=== PATIENT | female | born 1990 | race Caucasian/White ===

== ENCOUNTER 2024-06-23 15:26 | Emergency (ER) | payer OTHER ==
[~2024-06-23] VITALS: Ht 157.5 cm; Wt 54.0 kg
[2024-06-23 15:30] VITALS: TEMP 98.6
[2024-06-23 17:33] LABS: APPEARANCE,URINE CLEAR (CLEAR); BILIRUBIN,URINE NEGATIVE (NEGATIVE); COLOR,URINE COLORLESS (YELLOW); GLUCOSE, URINE (UA) NEGATIVE (NEGATIVE); HCG,QUAL URINE NEGATIVE (NEGATIVE); KETONES,URINE TRACE mg/dL (NEGATIVE); LEUKOCYTE ESTERASE ,URINE NEGATIVE (NEGATIVE); NITRATE,URINE NEGATIVE (NEGATIVE); OCCULT BLOOD,URINE NEGATIVE (NEGATIVE); PROTEIN,URINE NEGATIVE (NEGATIVE); SPECIFIC GRAVITIY, URINE 1.006 (1.003-1.030); UROBILINOGEN,URINE <=1.0 mg/dL (<=1.0)
[2024-06-23 17:42] LABS: COVID AG,FIA SOURCE NASAL SWAB
[2024-06-23] MEDS: KETOROLAC TROMETHAMINE 30 MG/ML VIAL IM ONE (17:54)
[2024-06-23 18:06] LABS: SARS-COV2 (COVID) ANTIGEN,FIA Negative (Negative)
[2024-06-23 18:08] LABS: INFLUENZA TYPE A NEGATIVE FOR TYPE A (NEGATIVE); INFLUENZA TYPE B NEGATIVE FOR TYPE B (NEGATIVE)
[2024-06-23 19:40] VITALS: BP 133/75; PULSE 71; RESP 20; O2SAT 100
== END 2024-06-23 20:18 | disposition home or self-care (01) ==
LOC: EMS 15:26
DX: G43.909 Migraine, unspecified, not intractable, without status migrainosus (principal); Z90.710 Acquired absence of both cervix and uterus; Z20.822 Contact with and (suspected) exposure to COVID-19
CPT/HCPCS: 99283; 87426; 81003; 84703; 87804; 96372; J1885

== ENCOUNTER 2025-02-13 17:00 | Emergency (ER) | payer OTHER ==
[~2025-02-13] VITALS: Ht 157.5 cm; Wt 70.5 kg
[2025-02-13 17:04] VITALS: TEMP 97.4
[2025-02-13] MEDS: IBUPROFEN 400 MG TABLET PO ONE (17:52)
[2025-02-13] MEDS: HYDROCODONE/ACETAMINOPHEN 5-325 MG TABLET PO ONE (17:52)
[2025-02-13 18:30] VITALS: BP 118/70; PULSE 72; RESP 16; O2SAT 99
[2025-02-13] MEDS: BACITRACIN 28 GM OINTMENT TP ONE (18:46)
[2025-02-13] MEDS: PERTUSS(ACELL),DIPH,TET/PF 0.5 ML SYRINGE [ADULT] IM. ONE (18:56)
== END 2025-02-13 19:06 | disposition home or self-care (01) ==
LOC: EMS 17:00
DX: T23.242A Burn of second degree of multiple left fingers (nail), including thumb, initial encounter (principal); T31.0 Burns involving less than 10% of body surface; Z90.710 Acquired absence of both cervix and uterus; X17.XXXA Contact with hot engines, machinery and tools, initial encounter; Y93.G3 Activity, cooking and baking; Y92.89 Other specified places as the place of occurrence of the external cause; Y99.8 Other external cause status
CPT/HCPCS: 16020; 90471; 90715; 99283

== ENCOUNTER 2025-04-04 17:20 | Emergency (ER) | payer OTHER ==
[~2025-04-04] VITALS: Ht 154.9 cm; Wt 66.9 kg
[2025-04-04 17:23] VITALS: TEMP 97.9
[2025-04-04] MEDS: SODIUM CHLORIDE 0.9% 1,000 ML IV ONE (18:17)
[2025-04-04] MEDS: KETOROLAC TROMETHAMINE 30 MG/ML VIAL IVP ONE (18:18)
[2025-04-04] MEDS: METOCLOPRAMIDE HCL 5 MG/ML 2 ML VIAL IVP ONE (18:18)
[2025-04-04] MEDS: LORazepam 2 MG/ML VIAL IVP ONE (18:18)
[2025-04-04 18:41] LABS: PLATELET COUNT (AUTO) 239 K/uL (150-450); RED BLOOD CELL COUNT(AUTO) 4.03 MIL/uL (4.00-5.20); RED CELL DISTRIBUTION WIDTH 13.1 % (11.5-14.5); WHITE BLOOD COUNT (AUTO) 9.2 K/uL (4.5-11.0)
[2025-04-04 18:48] LABS: CALCIUM, TOTAL 8.1 mg/dL (8.8-10.5); CREATININE 0.54 mg/dL (0.60-1.30); GLOMERULAR FILTR. RATE CALC > 60 mL/min (>60); GLUCOSE,RANDOM 90 mg/dL (70-110); SODIUM SERUM 139 mmol/L (136-145); UREA NITROGEN, BLOOD 9 mg/dL (7-18)
[2025-04-04] MEDS ORDERED: METO5TAB95 PO (21:21)
[2025-04-04 22:01] VITALS: BP 110/85; PULSE 72; RESP 18; O2SAT 99
== END 2025-04-04 22:03 | disposition home or self-care (01) ==
LOC: EMS 17:20
DX: G43.909 Migraine, unspecified, not intractable, without status migrainosus (principal); F41.9 Anxiety disorder, unspecified; Z90.710 Acquired absence of both cervix and uterus
CPT/HCPCS: 99284; 96374; 96375; 96361; 80048; 84703; 85025; 36415; J1885; J2060; J2765; J7030

== ENCOUNTER 2025-06-06 17:09 | Emergency (ER) | payer OTHER ==
[~2025-06-06] VITALS: Ht 157.5 cm; Wt 65.9 kg
[~2025-06-06 17:09] MED LIST: METO5TAB95 PO
[2025-06-06 17:16] VITALS: TEMP 98.6
[2025-06-06 17:35] LABS: PLATELET COUNT (AUTO) 268 K/uL (150-450); RED BLOOD CELL COUNT(AUTO) 4.51 MIL/uL (4.00-5.20); RED CELL DISTRIBUTION WIDTH 12.7 % (11.5-14.5); WHITE BLOOD COUNT (AUTO) 8.2 K/uL (4.5-11.0)
[2025-06-06 17:39] LABS: CALCIUM, TOTAL 8.5 mg/dL (8.8-10.5); CREATININE 0.60 mg/dL (0.60-1.30); GLOMERULAR FILTR. RATE CALC > 60 mL/min (>60); GLUCOSE,RANDOM 104 mg/dL (70-110); SODIUM SERUM 140 mmol/L (136-145); UREA NITROGEN, BLOOD 13 mg/dL (7-18)
[2025-06-06 17:45] LABS: ASPARTATE AMINOTRANSFERASE 11.0 U/L (15-37); TOTAL PROTEIN, SERUM 7.2 g/dL (6.4-8.2)
[2025-06-06 17:49] LABS: TROPONIN I-HIGH SENSITIVITY 8 ng/L (<51)
[2025-06-06] MEDS: ACETAMINOPHEN 500 MG TABLET PO ONE (18:26)
[2025-06-06 18:49] VITALS: BP 113/56; PULSE 68; RESP 18; O2SAT 99
== END 2025-06-06 19:11 | disposition home or self-care (01) ==
LOC: EMS 17:11
DX: R07.89 Other chest pain (principal); R20.2 Paresthesia of skin; F41.9 Anxiety disorder, unspecified; Z90.710 Acquired absence of both cervix and uterus; Z79.899 Other long term (current) drug therapy
CPT/HCPCS: 71045; 80048; 80076; 84484; 84703; 85025; 93005; 99285; 36415-L1; 36415-TC

== ENCOUNTER 2025-06-22 11:29 | Emergency (ER) | payer OTHER ==
[~2025-06-22] VITALS: Ht 162.6 cm; Wt 63.6 kg
[2025-06-22 11:32] VITALS: BP 114/77; PULSE 77; RESP 18; TEMP 98.6; O2SAT 99
[2025-06-22] MEDS ORDERED: ACET-3385 PO (11:33)
[2025-06-22] MEDS: KETOROLAC TROMETHAMINE 30 MG/ML VIAL IM ONE (12:32)
[2025-06-22] MEDS: ONDANSETRON 4 MG TABLET PO ONE (13:18)
[2025-06-23] MEDS ORDERED: KETO10TA2 PO (00:22)
[2025-06-23] MEDS ORDERED: ONDA-104 PO (00:22)
[2025-06-23] MEDS ORDERED: DEXA4 PO (00:22)
== END 2025-06-22 14:52 | disposition home or self-care (01) ==
LOC: EMS 11:29
DX: G43.909 Migraine, unspecified, not intractable, without status migrainosus (principal); Z90.710 Acquired absence of both cervix and uterus; Z79.899 Other long term (current) drug therapy
CPT/HCPCS: 99284; 96372; J1885; Q0162

== ENCOUNTER 2025-06-22 21:35 | Emergency (ER) | payer OTHER ==
[~2025-06-22] VITALS: Ht 160 cm; Wt 63.6 kg
[~2025-06-22 21:35] MED LIST changes: +ACET-3385 PO
[2025-06-22] MEDS: MORPHINE SULFATE 4 MG/ML SYRINGE IVP ONE (22:15)
[2025-06-22] MEDS: ONDANSETRON HCL 4 MG/2 ML VIAL IVP ONE (22:15)
[2025-06-22] MEDS: SODIUM CHLORIDE 0.9% 1,000 ML IV ONE (22:15)
[2025-06-22 22:44] LABS: PLATELET COUNT (AUTO) 234 K/uL (150-450); RED BLOOD CELL COUNT(AUTO) 4.35 MIL/uL (4.00-5.20); RED CELL DISTRIBUTION WIDTH 12.7 % (11.5-14.5); WHITE BLOOD COUNT (AUTO) 9.1 K/uL (4.5-11.0)
[2025-06-22 22:51] LABS: CALCIUM, TOTAL 9.0 mg/dL (8.8-10.5); CREATININE 0.66 mg/dL (0.60-1.30); GLOMERULAR FILTR. RATE CALC > 60 mL/min (>60); GLUCOSE,RANDOM 98 mg/dL (70-110); SODIUM SERUM 138 mmol/L (136-145); UREA NITROGEN, BLOOD 16 mg/dL (7-18)
[2025-06-23] MEDS ORDERED: ONDA-104 PO (00:22)
[2025-06-23] MEDS ORDERED: KETO10TA2 PO (00:22)
[2025-06-23] MEDS ORDERED: DEXA4 PO (00:22)
[2025-06-23] MEDS ORDERED: DEXAMETHASONE SOD PHOS 4 MG/ML 5 ML VIAL IVP ONE (00:30)
[2025-06-23 00:54] VITALS: BP 116/65; PULSE 72; RESP 18; TEMP 97.9; O2SAT 100
== END 2025-06-23 02:09 | disposition home or self-care (01) ==
LOC: EMS 21:36
DX: G43.909 Migraine, unspecified, not intractable, without status migrainosus (principal); Z90.710 Acquired absence of both cervix and uterus; Z79.899 Other long term (current) drug therapy
CPT/HCPCS: 99284; 96374; 96375; 80048; 84703; 85025; 36415; J2270; J2405; J7030; J1100